=== PATIENT | female | born 1990 ===

== ENCOUNTER 2020-09-05 18:35 | Emergency (ER) | payer OTHER ==
[2020-09-05 19:37] LABS: CHLORIDE,CL 104 mmol/L (98-107); SODIUM,NA 140 mmol/L (136-145)
[2020-09-05] MEDS ORDERED: Ketorolac 10 MG Tab PO ONE (20:19)
--- NOTE | 2020-09-05 20:21 | EDM.PDOC ---
ED HPI GENERAL MEDICAL PROBLEM - General Chief Complaint: Abdominal Pain Stated Complaint: Abdominal Pain Time Seen by Provider: 09/05/20 19:09 Source of Information: Reports: Patient History Limitations: Reports: No Limitations - History of Present Illness INITIAL COMMENTS - FREE TEXT/NARRATIVE: Patient comes to ER after experiencing sharp lower abdominal pain. STarted approx 20 min prior to presenting. "Doubled" her over. Does have history of kidney stones and that was only other time she experienced similar sharp pain. Improving by time of exam. No fever/chills/recent injury/recent illness Normal day prior to developing pain. Denies chance of . Is on BCPs. Two weeks into pack. No nausea/vomiting/diarrhea/constipation No UTI complaints or changes. Pain did not radiate anywhere. 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 3-4 times per month Endocrine/Metabolic History: Reports: Obesity/BMI 30+ - Infectious Disease History Infectious Disease History: Reports: Chicken Pox - Past Surgical History Female Surgical History: Reports: None Neurological Surgical History: Reports: None Social & Family History - Tobacco Use Tobacco Use Status *Q: Unknown Ever Used Tobacco ED ROS GENERAL - Review of Systems Review Of Systems: Comprehensive ROS is negative, except as noted in HPI. ED EXAM, GENERAL - Physical Exam Exam: See Below Exam Limited By: No Limitations General Appearance: Alert, WD/WN, No Apparent Distress, Obese Eye Exam: Bilateral Eye: EOMI, PERRL Ears: Hearing Grossly Normal Nose: No: Nasal Deformity, Nasal Swelling, Nasal Drainage Throat/Mouth: Normal Lips, Normal Voice, No Airway Compromise Head: Atraumatic, Normocephalic Neck: Supple Respiratory/Chest: No Respiratory Distress, Lungs Clear, Normal Breath Sounds, No Accessory Muscle Use Cardiovascular: Regular Rate, Rhythm, No Murmur GI/Abdominal: Soft, No Distention, Tender (some tenderness in suprapubic area, more so on right side), Abnormal Bowel Sounds (diminished throughout). No: Guarding, Rigid, Rebound (Female) Exam: Deferred Rectal (Female) Exam: Deferred Back Exam: No: CVA Tenderness (L), CVA Tenderness (R), Muscle Spasm Extremities: Normal Inspection, Normal Capillary Refill Neurological: Alert, Oriented, Normal Cognition, Normal Gait, No Motor/Sensory Deficits Psychiatric: Normal Affect, Normal Mood Skin Exam: Warm, Dry, Intact, Normal Color Course - Vital Signs Last Recorded V/S: Last Vital Signs Temp 36.2 C 09/05/20 18:40 Pulse 68 09/05/20 18:40 Resp 18 09/05/20 18:40 BP 157/80 H 09/05/20 18:40 Pulse Ox 100 09/05/20 18:40 - Orders/Labs/Meds Orders: Active Orders 24 hr Category Date Time Status Acute Abdominal Series [Abdomen 1V Upright] [CR] Stat Exams 09/05/20 18:50 Taken Labs: Laboratory Tests 09/05/20 09/05/20 09/05/20 Range/Units 18:49 18:49 19:15 WBC 8.8 (4.0-10.2) K/uL RBC 4.73 (3.77-5.09) M/uL Hgb 13.8 (11.7-15.5) g/dL Hct 41.6 (34.0-46.0) % MCV 87.9 (84.0-98.0) fL MCH 29.2 (28.2-33.3) pg MCHC 33.2 (31.7-36.0) g/dL RDW 12.0 (11.2-14.1) % Plt Count 288 (150-350) K/uL Neut % (Auto) 61.0 (45.0-80.0) % Lymph % (Auto) 30.1 (10.0-50.0) % [place] % (Auto) 6.6 (2.0-14.0) % Eos % (Auto) 2.2 (0.0-5.0) % Baso % (Auto) 0.1 (0.0-2.0) % Neut # (Auto) 5.39 (1.40-7.00) K/uL Lymph # (Auto) 2.66 (0.50-3.50) K/uL [place] # (Auto) 0.58 (0.00-1.00) K/uL Eos # (Auto) 0.19 (0.00-0.50) K/uL Baso # (Auto) 0.01 (0.00-0.20) K/uL Sodium (136-145) mmol/L Potassium (3.5-5.1) mmol/L Chloride (98-107) mmol/L Carbon Dioxide (21.0-32.0) mmol/L BUN (7-18) mg/dL Creatinine (0.51-1.17) mg/dL Est Cr Clr Drug Dosing mL/min Estimated GFR (MDRD) mL/min Glucose (70-99) mg/dL Lactic Acid (0.4-2.0) mmol/L Calcium (8.5-10.1) mg/dL Magnesium (1.8-2.4) mg/dL Total Bilirubin (0.2-1.0) mg/dL AST (15-37) U/L ALT (12-78) U/L Alkaline Phosphatase (46-116) IU/L Total Protein (6.4-8.2) g/dL Albumin (3.4-5.0) g/dL Specimen Type Urinvoid Urine Color Yellow Urine Appearance Slightly cloudy Urine pH 6.0 (5.0-9.0) Ur Specific [place] >= 1.030 (1.005-1.030) Urine Protein Trace H (NEGATIVE) mg/dL Urine Glucose (UA) Negative (NEGATIVE) mg/dL Urine Ketones Negative (NEGATIVE) mg/dL Urine Occult Blood Negative (NEGATIVE) Urine Nitrite Negative (NEGATIVE) Urine Bilirubin Negative (NEGATIVE) Urine Urobilinogen 0.2 (0.2-1.0) E.U./dL Ur Leukocyte Esterase Negative (NEGATIVE) Urine RBC 0-5 /HPF Urine WBC 0-5 /HPF Ur Epithelial Cells Many H /LPF Urine Bacteria Moderate H (NONE TO FEW) /HPF Urine HCG, Qual Negative 09/05/20 09/05/20 09/05/20 Range/Units 19:15 19:15 19:15 WBC (4.0-10.2) K/uL RBC (3.77-5.09) M/uL Hgb (11.7-15.5) g/dL Hct (34.0-46.0) % MCV (84.0-98.0) fL MCH (28.2-33.3) pg MCHC (31.7-36.0) g/dL RDW (11.2-14.1) % Plt Count (150-350) K/uL Neut % (Auto) (45.0-80.0) % Lymph % (Auto) (10.0-50.0) % [place] % (Auto) (2.0-14.0) % Eos % (Auto) (0.0-5.0) % Baso % (Auto) (0.0-2.0) % Neut # (Auto) (1.40-7.00) K/uL Lymph # (Auto) (0.50-3.50) K/uL [place] # (Auto) (0.00-1.00) K/uL Eos # (Auto) (0.00-0.50) K/uL Baso # (Auto) (0.00-0.20) K/uL Sodium 140 (136-145) mmol/L Potassium 3.3 L (3.5-5.1) mmol/L Chloride 104 (98-107) mmol/L Carbon Dioxide 24.7 (21.0-32.0) mmol/L BUN 15 (7-18) mg/dL Creatinine 0.95 (0.51-1.17) mg/dL Est Cr Clr Drug Dosing 99.02 mL/min Estimated GFR (MDRD) > 60 mL/min Glucose 99 (70-99) mg/dL Lactic Acid 1.9 (0.4-2.0) mmol/L Calcium 8.2 L (8.5-10.1) mg/dL Magnesium 1.8 (1.8-2.4) mg/dL Total Bilirubin 0.2 (0.2-1.0) mg/dL AST 13 L (15-37) U/L ALT 18 (12-78) U/L Alkaline Phosphatase 63 (46-116) IU/L Total Protein 6.9 (6.4-8.2) g/dL Albumin 3.3 L (3.4-5.0) g/dL Specimen Type Urine Color Urine Appearance Urine pH (5.0-9.0) Ur Specific [place] (1.005-1.030) Urine Protein (NEGATIVE) mg/dL Urine Glucose (UA) (NEGATIVE) mg/dL Urine Ketones (NEGATIVE) mg/dL Urine Occult Blood (NEGATIVE) Urine Nitrite (NEGATIVE) Urine Bilirubin (NEGATIVE) Urine Urobilinogen (0.2-1.0) E.U./dL Ur Leukocyte Esterase (NEGATIVE) Urine RBC /HPF Urine WBC /HPF Ur Epithelial Cells /LPF Urine Bacteria (NONE TO FEW) /HPF Urine HCG, Qual Meds: Medications Discontinued Medications Generic Name Dose Route Start Last Admin Trade Name Freq PRN Reason Stop Dose Admin Ketorolac Tromethamine 10 mg 09/05/20 20:19 09/05/20 20:24 Ketorolac 10 Mg Tab PO 09/05/20 20:20 10 mg ONETIME ONE Administration - Re-Assessments/Exams Free Text/Narrative Re-Assessment/Exam: 09/05/20 20:35 Basic labs and xray obtained. Overall unremarkable. Negative HCG. Patient continued to feel much improved, discomfort now minimal. Discussed differential which included ruptured ovarian cyst/GI etiology/kidney stone. Given the pain's sudden/severe appearance and location it could be secondary to ovarian cyst. Patient declined [employer]ATOR exam. Would like to go home and see how symptoms go. Will return as needed if symptoms return/new problems develop. Precautions reviewed prior to discharge. Single PO Toradol given prior to discharge. Departure - Departure Time of Disposition: 20:19 Disposition: Home, Self-Care 01 Condition: Good Clinical Impression: Abdominal pain Qualifiers: Abdominal location: lower abdomen, unspecified Qualified Code(s): R10.30 - Lower abdominal pain, unspecified - Discharge Information *PRESCRIPTION DRUG MONITORING PROGRAM REVIEWED*: Not Applicable *COPY OF PRESCRIPTION DRUG MONITORING REPORT IN PATIENT HEIDY: Not Applicable Referrals: PCP,None [Primary Care Provider] - Forms: ED Department Discharge Additional Instructions: Watch for recurrent pain or any other changes/new symptoms over the next few days. If it was due to an ovarian cyst bursting, things should gradually improve. If it was referred pain from a kidney stone, there is a chance that it could return. If you need to come back for re-evaluation we can consider a CT at that time to look for stones. Call if you have questions. Sepsis Event Note (ED) - Evaluation Sepsis Screening Result: No Definite Risk - Focused Exam Vital Signs: Vital Signs Temp Pulse Resp BP Pulse Ox 09/05/20 18:40 36.2 C 68 18 157/80 H 100 - My Orders Last 24 Hours: My Active Orders 09/05/20 18:50 Acute Abdominal Series [Abdomen 1V Upright] [CR] Stat - Assessment/Plan Last 24 Hours: My Active Orders 09/05/20 18:50 Acute Abdominal Series [Abdomen 1V Upright] [CR] Stat
== END 2020-09-05 20:30 | disposition home or self-care (01) ==
LOC: LL.ED 18:35
DX: R10.30 Lower abdominal pain, unspecified (principal); E66.9 Obesity, unspecified; Z68.38 Body mass index [BMI] 38.0-38.9, adult
CPT/HCPCS: 36415; 74018; 80053; 81001; 81025; 83605; 83735; 85025; 99283; 99284-25; A9270-GY